=== PATIENT | male | born 1985 | race Caucasian/White ===

== ENCOUNTER → 2016-12-10 | Outpatient (CLI) | payer BC ==
[~2016-12-10] MED LIST: METH4TAB27 PO; RANI150T11 PO
[2016-12-10 14:19] VITALS: BP 124/84
--- NOTE | 2016-12-10 14:19 | Urgent Care T Sheet Gen (E) ---
Intake General Temperature (Fahrenheit): 98.2 Pulse: 87 Blood Pressure Systolic: 124 Blood Pressure Diastolic: 84 Respirations: 18 SPO2: 98 Description of Symptoms Patient presents with a 1 week history of throat irritation. The patient states however that his throat isn't sore, it just feels funny. Denies any foreign body sensation. States he is eating and drinking normally (food or drink doesn't seem to get stuck). Denies any fever or swollen glands. States he has this sensation constantly. Hasn't gotten worse over the past week. The week long duration however has him concerned. Patient does have seasonal allergies which are bad right now. Takes Lisa and Sudafed when he remembers. Also has bad heart burn and takes Zantac when he can remember ( unsure the dosage). Respiratory Constitutional Symptoms: No syptoms reported EENTM: Throat pain Throat swellingNo Mouth Pain, No Mouth Swelling Respiratory: No symptoms reported Cardiovascular: No symptoms reported Gastrointestinal/Abdominal: No symptoms reported All Other Systems Reviewed Remaining Systems: All other systems reviewed with negative findings Physical Exam Physical Exam General Appearance: WD/WN No apparent distress Eyes, Ears, Nose, Throat Ex: TMs normal Pharyngeal erythema (red streaks with cobblestone appearance. Tonsils are not enlarged. No exudates or tonsil stones.) Other (clear thin nasal drainage with pale turbinates) Neck Exam: SuppleNo Lymphadenopathy Respiratory Exam: Lungs clear Normal breath sounds Cardiovascular Exam: Regular rate, rhythm Departure Urgent Care Impression Impression: Primary Impression: Throat discomfort Additional Impression: Heart burn Departure Disposition: 01 HOME OR SELF-CARE Condition: Stable Additional Instructions: Long discussion with patient regarding symptoms, onset, treatment, etc. I doubt his symptoms are caused by strictures as food and drink are passing normally. His throat had the typical allergy appearance with the PND and the cobblestone appearance. With his history of heart burn, his throat discomfort could also be due to acid erosion. Will treat the 2 most likely causes. If no better, then will refer him to Dr Oviedo for EGD. I have started him on Medrol dose pack for his allergies and PND. This should also help with throat irritation. I have also prescribed Zantac 150mg daily. He was unsure of the dose he was taking at home. Return as needed patient understands DC instructions. All questions were answered. Scripts Methylprednisolone (Medrol Dosepack)21 Tab/Pkt Tablet6 Tab PO DAILY Inflammation #1 PKT Ref 0 6 tabs po on day 1 then decrease by 1 tab daily until packet is gone. Prov:WILLIS GUTIERREZ 12/10/16 Ranitidine HCl 150 Mg [id number] Mg PO DAILY #30 TAB Ref 1 Prov:WILLIS GUTIERREZ 12/10/16 End of report . WILLIS GUTIERREZ December 10, 2016 14:19
== END ==
LOC: MHUC 13:52
PROVIDERS: ATTEND Physician Assistant
DX: R07.0 Pain in throat (principal); R12 Heartburn
CPT/HCPCS: 99213